=== PATIENT | male | born 1960 | race Caucasian/White ===

== ENCOUNTER → 2019-12-14 09:46 | Outpatient (BNVA) | payer OTHER, SELFPAY | PROVIDERS: PCP Family Medicine | DX: Z20.828 Contact with and (suspected) exposure to other viral communicable diseases (principal) | CPT/HCPCS: 87635 ==

== ENCOUNTER → 2020-12-19 10:40 | Outpatient (BNVA) | payer OTHER, SELFPAY | PROVIDERS: PCP Emergency Medicine; Visit Provider Nurse Practitioner Family | DX: R19.7 Diarrhea, unspecified (principal); R31.9 Hematuria, unspecified | CPT/HCPCS: 81003; 87077; 87086; 87184 ==

== ENCOUNTER → 2020-12-30 10:39 | Outpatient (BNVA) | payer SELFPAY | PROVIDERS: PCP Nurse Practitioner Family; Visit Provider Nurse Practitioner Family | DX: N39.0 Urinary tract infection, site not specified (principal); R31.9 Hematuria, unspecified | CPT/HCPCS: 81000 ==

== ENCOUNTER → 2021-01-07 09:49 | Outpatient (BNVA) | payer OTHER, SELFPAY | PROVIDERS: PCP Nurse Practitioner Family; Visit Provider Nurse Practitioner Family | DX: R10.9 Unspecified abdominal pain (principal); R73.09 Other abnormal glucose | CPT/HCPCS: 80053; 81000; 83036; 85025 ==

== ENCOUNTER 2021-01-12 15:48 | Outpatient (CLI) | payer OTHER, SELFPAY ==
--- NOTE | 2021-01-12 16:00 | CTR_ITS ---
PROCEDURE INFORMATION: Exam: CT Abdomen And Pelvis Without Contrast Exam date and time: 01/12/2021 4:00 PM Age: 60 years old Clinical indication: Abdominal pain; Localized; Right; Prior surgery; Surgery type: Gb, appy; Patient HX: --rt side abdomen pain into back 1 month; Additional info: R10.9 - unspecified abdominal pain TECHNIQUE: Imaging protocol: Computed tomography of the abdomen and pelvis without contrast. Radiation optimization: All CT scans at this facility use at least one of these dose optimization techniques: automated exposure control; mA and/or kV adjustment per patient size (includes targeted exams where dose is matched to clinical indication); or iterative reconstruction. COMPARISON: No relevant prior studies available. RADIATION DOSE METRICS: Total DLP (mGy-cm): 894.98 FINDINGS: Liver: Diffuse hepatic steatosis. No evident mass. Gallbladder and bile ducts: Cholecystectomy clips. Pancreas: Normal. No ductal dilation. Spleen: Normal. No splenomegaly. Adrenal glands: Normal. No mass. Kidneys and ureters: There is a nearly 7 cm cyst originating off the upper pole of the right kidney. A nearly 4 cm cyst is also noted in the mid aspect of the left kidney. A few additional small scattered cysts noted. No nephrolithiasis. No obstructing stone within the urinary collecting system. Stomach and bowel: Unremarkable. No obstruction. No mucosal thickening. Appendix: No evidence of appendicitis. Intraperitoneal space: Unremarkable. No free air. No significant fluid collection. Vasculature: Unremarkable. No abdominal aortic aneurysm. Lymph nodes: Unremarkable. No enlarged lymph nodes. Urinary bladder: Unremarkable as visualized. Reproductive: Unremarkable as visualized. Bones/joints: No acute fracture. Degenerative disc disease at L4-L5 and L5-S1. Soft tissues: Unremarkable. CT/CT kidney stone 84525 IMPRESSION: 1. No nephrolithiasis. No obstructing stone within the urinary collecting system. No acute abdominal/pelvic findings. 2. Degenerative disc disease at L4-L5 and L5-S1. 3. Diffuse hepatic steatosis. COMMENTS: Consistent with the [employer]'s Incidental Findings Committee white paper (J Am Stephanie Radiol 2018): Any incidental renal lesion less than 1 cm or classified as too small to characterize, or any incidental cystic renal lesion characterized as simple-appearing, is likely benign. No follow-up imaging is recommended for these lesions per consensus recommendations based on imaging criteria. Radiation Dose CTDIVOL = (mGy): DLP = 894.98 (mGy-cm)
== END 2021-01-12 15:49 | disposition home or self-care (01) ==
PROVIDERS: PCP Nurse Practitioner Family; Visit Provider Nurse Practitioner Family
DX: R10.9 Unspecified abdominal pain (principal); M51.36 Other intervertebral disc degeneration, lumbar region; M51.37 Other intervertebral disc degeneration, lumbosacral region
CPT/HCPCS: 74176

== ENCOUNTER → 2021-04-28 09:02 | Outpatient (BNVA) | payer OTHER, SELFPAY | PROVIDERS: PCP Nurse Practitioner Family; Visit Provider Nurse Practitioner Family | DX: E11.9 Type 2 diabetes mellitus without complications (principal); I10 Essential (primary) hypertension; N52.9 Male erectile dysfunction, unspecified; Z68.38 Body mass index [BMI] 38.0-38.9, adult | CPT/HCPCS: 80061; 83036; 84403 ==

== ENCOUNTER → 2022-07-28 11:48 | Outpatient (BNVA) | payer OTHER, SELFPAY | PROVIDERS: PCP Nurse Practitioner Family; Visit Provider Nurse Practitioner Family | DX: I10 Essential (primary) hypertension (principal); R73.9 Hyperglycemia, unspecified | CPT/HCPCS: 80053; 80061; 83036; 84443 ==

== ENCOUNTER → 2023-12-30 10:48 | Outpatient (BNVA) | payer OTHER, SELFPAY | PROVIDERS: PCP Nurse Practitioner Family; Visit Provider Nurse Practitioner Family | DX: I10 Essential (primary) hypertension (principal); E11.9 Type 2 diabetes mellitus without complications | CPT/HCPCS: 80053; 80061; 82043; 83036 ==